=== PATIENT | female | born 1935 | race Caucasian/White ===

== ENCOUNTER → 2017-11-25 | Outpatient (CLI) | payer MEDICARE, OTHER | END | disposition home or self-care (01) | LOC: KCIC MRI 11:12 | DX: G43.009 Migraine without aura, not intractable, without status migrainosus (principal) | CPT/HCPCS: 70551 ==

== ENCOUNTER → 2018-06-16 | Outpatient (CLI) | payer MEDICARE, OTHER ==
[~2018-06-16] MED LIST: LIDOCAINE 2%/EPI 1:100,000 20 ML VIAL. IJ ONE; LIDOCAINE WITH 8.4% SOD BICARB 3 ML DISP.SYRIN. INJ ONE
--- NOTE | 2018-06-17 18:07 | PATHOLOGY ---
[facility] Accession Number: [id number] . 01 Material submitted: . PART A: RIGHT BREAST LATERAL CALCIFICATIONS PART B: RIGHT BREAST MEDIAL CALCIFICATIONS . 01 Clinical history: . Calcifications . 02 Diagnosis: A. Breast tissue, right lateral breast needle biopsies: - Fibroadenomatous change, focal, with associated calcifications. - Focal stromal fibrosis and mild duct ectasia. . B. Breast tissue, right medial breast needle biopsies: - Focal stromal fibrosis and mild duct ectasia. - Focal microcalcifications identified. (JPM:april; 06/17/2018) QMS/06/17/2018 . 02 Comment: There is no atypia or evidence of malignancy. . 02 Electronically signed: . Jm Case MD, Pathologist NPI- [id number] . 01 Gross description: . A. The specimen is received in formalin, labeled "Lois Stein, right breast calcifications lateral" and consists of an orange cassette containing multiple needle cores of yellow-canseco tissue measuring 2.3 x 1.9 x 0.5 cm which are transferred to cassette A1. Also received are 5 additional needle cores measuring between 0.8 cm and 2.5 cm in length and ranging from 0.3-0.5 cm in diameter which are entirely submitted in A2-A3. The cold ischemic time is 21 minutes and the total formalin fixation time is greater than 6 hours but less than 72 hours. . B. The specimen is received in formalin, labeled "Lois Stein, right breast calcifications medial" and consists of an orange cassette containing multiple needle cores of yellow-canseco tissue measuring 3.4 x 2.2 x 0.3 cm in aggregate which are transferred to cassette A1. Also received are 5 additional needle cores of yellow-canseco tissue measuring between 0.6 cm and 2.3 cm in length and ranging from 0.3-0.5 cm in diameter which are entirely submitted in B2-B3. The cold ischemic time is 10 minutes and the total formalin fixation time is greater than 6 hours but less than 72 hours. (SDY; 06/16/2018) SYU/SYU . 02 Pathologist provided ICD-10: N60.31, N60.41 . 02 CPT . 437523, 750515 Specimen Comment: A courtesy copy of this report has been sent to Specimen Comment: [phone], , . Specimen Comment: Report sent to ,DR KUHN / DR LAMBERT Specimen Comment: A duplicate report has been generated due to demographic updates. Performed at: 01 [facility] [address], [place] [id number] MD Marcelo Steele MD Phone: [phone] Performed at: 02 [facility] [address], [place] [id number] MD Jm Case MD Phone: [phone]
--- NOTE | 2018-06-18 09:56 | RAD ---
Stereotactic right breast biopsy #1, 06/16/2018: History: Suspicious microcalcifications Previous studies demonstrated 2 clusters of suspicious microcalcifications at the 12:00 location in the right breast. We first target the more laterally positioned cluster. Under local anesthesia, aseptic conditions and stereotactic guidance the Suros vacuum-assisted biopsy instrument was passed into this area of microcalcification via a superior approach. Multiple 9 gauge vacuum-assisted core samples were obtained. Specimen mammography demonstrated the majority of the targeted microcalcifications within the specimens. A T shaped biopsy marker was deposited at the biopsy site. The biopsy instrument was removed and hemostasis obtained. Stereotactic right breast biopsy #2, 06/16/2018: We then targeted the second cluster of microcalcifications located just medial to the midline of the breast. Under local anesthesia, aseptic conditions and stereotactic guidance the Suros vacuum-assisted biopsy instrument was passed into this area of microcalcification via a superior approach. Multiple 9 gauge vacuum-assisted core samples were obtained. Specimen mammography demonstrated the majority of the targeted microcalcifications within the specimens. A cylindrical biopsy marker was then deposited at this biopsy site. The biopsy instrument was removed and hemostasis obtained. Two-view digital mammograms were then obtained on a separate mammographic unit to document position of the biopsy markers. The patient tolerated the procedure well and left the department in good condition. Note: 1. The pathologic findings from the first right breast biopsy described the presence of fibroadenomatous change with calcifications and no evidence of malignancy. 2. The pathologic findings from the second more medial breast biopsy indicated the presence of focal stromal fibrosis with microcalcifications and no evidence of malignancy. These findings are considered to be concordant.
== END | disposition home or self-care (01) ==
LOC: MAMMO 09:29
PROVIDERS: ATTEND Surgery
DX: N60.31 Fibrosclerosis of right breast (principal); N60.41 Mammary duct ectasia of right breast; Z91.030 Bee allergy status; Z88.8 Allergy status to other drugs, medicaments and biological substances
CPT/HCPCS: 19081; 19082; 77065; 88305; C1713; J3490; 19085; 77022

== ENCOUNTER → 2019-04-30 | Outpatient (CLI) | payer MEDICARE, OTHER ==
--- NOTE | 2019-04-30 19:27 | RAD ---
Examination: PET W CT SKULL TO MIDTHIGH History: Pulmonary nodule Comparison/Correlation: 04/02/2019 CT chest abdomen pelvis with contrast FINDINGS: Net dose 12.6 mCi F-18 FDG was administered intravenously for purposes of PET/CT exam. Blood glucose level at the time of radiotracer administration was 119 mg/dL. Imaging was performed from the skull base to the proximal thighs. Hepatic reference uptake is SUV max of 2.5 . Uptake of radiotracer involving the imaged head and neck is unremarkable. 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 Linear radiopaque density involving the medial left chest wall is noted. Left mastectomy with reconstruction noted. Note is made of significant left anterior descending coronary arterial calcification. Patchy nodular opacities identified on CT exam are all notably decreased to nearly completely resolved. Patchy infiltrate at the posterior right mid thoracic level is identified corresponding to the ill-defined nodules previously seen. At the medial right costophrenic sulcus, there is a noncalcified nodule measuring 0.7 cm diameter. The nodules present have SUV max of up to 1.2. No intense attenuation of radiotracer to suggest active neoplastic process. Moderate-sized hiatal hernia is present. Uptake of radiotracer involving the abdomen and pelvis is unremarkable. Postoperative changes of the lumbar spine with rods and screws noted. Sacroiliac joint sclerosis is notable. Fibroid uterus noted. Old right pubic ring fractures are present. Kyphoplasty and compression fractures of the spine again noted. IMPRESSION: Notable decrease in size and number of patchy nodular infiltrates in the right lower lung field. No intense uptake of the nodules to suggest active neoplastic or metastatic disease. PQRS Compliance Statement: One or more of the following individualized dose reduction techniques were utilized for this examination: 1. Automated exposure control 2. Adjustment of the mA and/or kV according to patient size 3. Use of iterative reconstruction technique Electronically signed by: David Kirkpatrick MD (04/30/2019 7:24 PM) [facility]
== END | disposition home or self-care (01) ==
LOC: PETSC 09:30
PROVIDERS: ATTEND Internal Medicine Critical Care Medicine
DX: R91.8 Other nonspecific abnormal finding of lung field (principal); J32.0 Chronic maxillary sinusitis; Z90.12 Acquired absence of left breast and nipple; K44.9 Diaphragmatic hernia without obstruction or gangrene
CPT/HCPCS: 78815; A9552